=== PATIENT | female | born 1985 | race Asian ===

== ENCOUNTER → 2019-02-07 | Outpatient (CLI) | payer OTHER | LOC: MC.RAD 14:14 | DX: N63.11 Unspecified lump in the right breast, upper outer quadrant (principal) ==

== ENCOUNTER 2021-05-17 09:57 | Emergency (ER) | payer OTHER ==
[~2021-05-17] VITALS: Ht 160 cm; Wt 50.0 kg
[2021-05-17 10:15] VITALS: TEMP 99.7
[2021-05-17 11:40] VITALS: BP 120/61; PULSE 88
== END 2021-05-17 11:45 | disposition home or self-care (01) ==
LOC: COL.ER 09:57
DX: U07.1 COVID-19 (principal)

== ENCOUNTER 2021-09-26 21:40 | Emergency (ER) | payer OTHER ==
[~2021-09-26] VITALS: Ht 160 cm; Wt 50.0 kg
[2021-09-26 21:49] VITALS: BP 159/92; TEMP 98.1
[2021-09-26] MEDS ORDERED: PREDNISONE20 MG PO (22:13)
[2021-09-26 23:15] VITALS: PULSE 63
== END 2021-09-26 23:17 | disposition home or self-care (01) ==
LOC: COL.ER 21:40
DX: T78.40XA Allergy, unspecified, initial encounter (principal)
CPT/HCPCS: J1200; J2930; J7030